=== PATIENT | male | born 1930 | race African-American/Black ===

== ENCOUNTER 2017-04-02 15:14 | Emergency (ER) | payer OTHER ==
[~2017-04-02] VITALS: Ht 177.8 cm; Wt 65.0 kg
[2017-04-02] MEDS ORDERED: ONDANSETRON HCL 4MG/2ML VIAL IV STA (16:02)
[2017-04-02] MEDS ORDERED: MORPHINE SULFATE 4 MG/ML CPJ (NOT FOR IM USE) IV STA (16:02)
[2017-04-02 16:21] LABS: BASOPHILS % 0.7 % (0.0-2.0); EOSINOPHILS % 4.4 % (0.0-5.0); HEMATOCRIT. 36.8 % (42.0-52.0); HEMOGLOBIN. 12.4 g/dL (14.0-18.0); LYMPHOCYTES % 19.3 % (20.0-50.0); MEAN CORPUSCULAR HEMOGLOBIN 31.9 pg (28.0-32.0); MEAN CORPUSCULAR VOLUME 94.4 fL (80.0-94.0); MEAN PLATELET VOLUME 7.5 fl (7.4-10.4); MONOCYTES % 6.1 % (2.0-8.0); NEUTROPHILS % 69.5 % (40.0-76.0); PLATELET 166 x1000/uL (130-400); RED CELL DISTRIBUTION WIDTH 15.4 % (11.6-14.6)
[2017-04-02 16:25] LABS: PROTHROMBIN TIME 10.8 sec (9.4-11.6)
[2017-04-02 16:26] LABS: CARBON DIOXIDE 24 mEq/L (21-32); CHLORIDE 109 mEq/L (98-107)
[2017-04-02 16:34] LABS: TROPONIN I 0.04 ng/mL (0.00-0.04)
[2017-04-02 18:03] VITALS: BP 123/72
== END 2017-04-02 18:06 | disposition left against medical advice (07) ==
LOC: ER 15:20 → CANRESERV 16:11 → ENRESERV 16:11 → ER 18:06 → CANBEDREQ 22:54
DX: R07.9 Chest pain, unspecified (principal); I95.9 Hypotension, unspecified; R10.13 Epigastric pain; E11.9 Type 2 diabetes mellitus without complications; J44.9 Chronic obstructive pulmonary disease, unspecified; I11.0 Hypertensive heart disease with heart failure; I50.9 Heart failure, unspecified
CPT/HCPCS: 36415; 71010; 80053; 83690; 83880; 84484; 85025; 85610; 93005; 99285